=== PATIENT | female | born 1965 | race Caucasian/White ===

== ENCOUNTER 2016-10-22 09:57 | Day surgery (SDC) | payer OTHER ==
[~2016-10-22 09:57] MED LIST: AMOXICILLIN 50500 MG PO; CITALOPRAM20 MG PO; FLUTICASONE 50M16 GM; LORATADINE10 M1 PO; LOSARTAN POTAS100 MG PO; MOTRIN800 MG PO
--- NOTE | 2016-10-22 11:16 | Operative Note ---
Upper GI Endoscopy Procedure date: 10/22/16 Date of : 61 Procedure:Upper GI Endoscopy Esophagogastroduodenoscopy with cold biopsies Indications: Mrs. Dickson is a 51-year-old female who is here for diagnostic panendoscopy secondary to iron deficiency anemia. The patient recently had mild anemia with hemoglobin of 11.2 and a positive fecal Hemoccult test. She is on oral iron. She did have panendoscopy by Dr. Maximo Hopper in November 2007 for iron deficiency and she had very mild gastritis but there was a normal duodenum with biopsies and normal colonoscopy to the terminal ileum. The patient reports no melena, hematochezia or bright red blood per rectum. She does take baby aspirin and occasional ibuprofen. She is not on any anticoagulation. She reports no reflux, heartburn, abdominal pain, dyspepsia or dysphagia. She reports no weight loss, change in her bowel habits or family history of colon cancer. Performing Provider: Magdi Noel MD Referring Provider: Marques Tolbert M.D. Sedation: Fentanyl 200 mg IV/Versed 9 mg IV Procedure: Prior to the procedure, a history and physical exam was performed, and patients medications and allergies were reviewed. The risks and benefits of the procedure and the sedation options and risks were discussed with the patient. All questions were answered and informed consent was obtained. The patient was brought to the procedure room. Patient identification and proposed procedure were verified by the physician and the nurse. The patient was placed in a left lateral decubitus position and the scope was passed under direct vision. Throughout the procedure, the patient's blood pressure, pulse, and oxygen saturations were monitored continuously. The endoscope was introduced through the mouth, and advanced to the second part of duodenum. The upper GI endoscopy was accomplished without difficulty. The patient tolerated the procedure well. Findings: The scope was passed directly into the upper esophagus and advanced to the fourth portion of the duodenum and proximal jejunum. The post bulbar duodenum and duodenal bulb were normal with normal mucosa and conniventes. Cold biopsies were taken from the post bulbar duodenum and duodenal bulb to rule out celiac disease. The scope was withdrawn through a normal duodenal bulb and pylorus into the stomach. There was minimal linear erythema in the antrum and minimal chronic gastritis. The remainder of the antrum, body and fundus of the stomach were grossly normal. Upon retroflexion there was no hiatal hernia. 2 biopsies were taken in the antrum and along the lesser curvature for histology. The scope was then withdrawn into the esophagus. There was one short tongue of salmon-colored mucosa biopsied at the GE junction. The remainder of the esophageal mucosa was normal. Immediate complications: None EBL (ml): 0 Impression: 1. Very mild chronic gastritis Recommendations: I will follow up the biopsies. There was no source for the patient's anemia, iron deficiency or Hemoccult positive stools. I will proceed with colonoscopy. If the colonoscopy is normal, I would repeat Hemoccult testing. If repeat Hemoccult testing is again positive I would recommend video capsule enteroscopy. at 1116
--- NOTE | 2016-10-22 11:37 | Operative Note ---
Colonoscopy ([facility]) Procedure date: 10/22/16 Date of : 61 Procedure:Colonoscopy Colonoscopy with cold biopsies Indications: Mrs. Dickson is a 51-year-old female who is here for diagnostic panendoscopy secondary to iron deficiency anemia. The patient recently had mild anemia with hemoglobin of 11.2 and a positive fecal Hemoccult test. She is on oral iron. She did have panendoscopy by Dr. Maximo Hopper in November 2007 for iron deficiency and she had very mild gastritis but there was a normal duodenum with biopsies and normal colonoscopy to the terminal ileum. The patient reports no melena, hematochezia or bright red blood per rectum. She does take baby aspirin and occasional ibuprofen. She is not on any anticoagulation. She reports no reflux, heartburn, abdominal pain, dyspepsia or dysphagia. She reports no weight loss, change in her bowel habits or family history of colon cancer. Performing Provider: Magdi Noel MD Referrring Provider: Marques Tolbert M.D. Sedation: Fentanyl 200 mg IV/Versed 13 mg IV (combined sedation for both EGD/colonoscopy) Procedure: Prior to the procedure, a history and physical exam was performed, and patient medications and allergies were reviewed. The risks and benefits of the procedure and the sedation options and risks were discussed with the patient. All questions were answered and informed consent was obtained. Patient identification and proposed procedure were verified by the physician and the nurse. The patient was placed in a left lateral decubitus position. Throughout the procedure, the patient's blood pressure, pulse, and oxygen saturations were monitored continuously. Findings: On digital rectal examination there was normal rectal tone. There were no external hemorrhoids. The colonoscope was introduced through the anal canal to the rectum and advanced to the cecum. The ileocecal valve and appendiceal orifice were identified. The scope was advanced a short distance into the ileum which appeared grossly normal. The scope was then withdrawn into the colon. There were 3 diminutive colon polyps identified in the cecum 1, ascending 1 and descending 1. These ranged in size from 4-5 mm and were all removed via cold biopsy forceps. There were very mildly scattered diverticuli throughout the descending and sigmoid colon (LEFT colon). The rectum itself was normal. Upon retroflexion within the rectum there were grade 1 internal hemorrhoids. Impressions: 1. Diminutive colonic polyps 3 2. Mild left-sided diverticulosis 3. Grade 1 internal hemorrhoids Recommendations: I will follow up the polyp pathology and recommend repeat colonoscopy again in 5 years based upon the polyp histology. There was no source for the patient's iron deficiency anemia. It is possible that the Hemoccult was related to the internal hemorrhoids which were very small. I would recommend repeat Hemoccult testing. If the patient is Hemoccult positive, I would recommend video capsule enteroscopy. I would encourage fiber supplementation on a long-term daily maintenance basis. Complications: None EBL (ml): 0 at [id number]
[2016-10-22 15:30] VITALS: BP 124/92
== END 2016-10-22 12:40 | disposition home or self-care (01) ==
LOC: SDC 09:57
PROVIDERS: Internal Medicine Gastroenterology
PROC: 0DBM8ZX Excision of Descending Colon, Via Natural or Artificial Opening Endoscopic, Diagnostic (ICD-10-PCS; 2016-10-22)
PROC: 0DBK8ZX Excision of Ascending Colon, Via Natural or Artificial Opening Endoscopic, Diagnostic (ICD-10-PCS; 2016-10-22)
PROC: 0DBH8ZX Excision of Cecum, Via Natural or Artificial Opening Endoscopic, Diagnostic (ICD-10-PCS; principal; 2016-10-22 11:00)
DX: K63.5 Polyp of colon (principal); K57.30 Diverticulosis of large intestine without perforation or abscess without bleeding; K64.0 First degree hemorrhoids; D50.9 Iron deficiency anemia, unspecified; K92.1 Melena

== ENCOUNTER → 2016-12-28 | Outpatient (CLI) | payer OTHER ==
[2017-01-01 11:48] LABS: STOOL OCCULT BLOOD NEGATIVE (NEG)
== END ==
LOC: LAB 11:40
PROVIDERS: Internal Medicine Gastroenterology
DX: D50.9 Iron deficiency anemia, unspecified (principal)
CPT/HCPCS: G0328

== ENCOUNTER → 2016-12-31 | Outpatient (CLI) | payer OTHER ==
[2017-01-01 11:48] LABS: STOOL OCCULT BLOOD NEGATIVE (NEG)
== END ==
LOC: LAB 11:35
PROVIDERS: Internal Medicine Gastroenterology
DX: D50.9 Iron deficiency anemia, unspecified (principal)
CPT/HCPCS: G0328

== ENCOUNTER → 2017-01-01 | Outpatient (CLI) | payer OTHER ==
[2017-01-01 11:48] LABS: STOOL OCCULT BLOOD NEGATIVE (NEG)
== END ==
LOC: LAB 11:33
PROVIDERS: Internal Medicine Gastroenterology
DX: D50.9 Iron deficiency anemia, unspecified (principal)
CPT/HCPCS: G0328